=== PATIENT | male | born 1990 | race Caucasian/White ===

== ENCOUNTER → 2018-02-14 07:56 | Outpatient (CLI) | payer OTHER, SELFPAY ==
[2018-02-14 10:11] LABS: Hematocrit 40.8 % (40-54); Hemoglobin 14.2 g/dl (13.0-16.5); Mean Corp Hgb Conc 34.8 g/gl (32-36); Mean Corpuscular Hgb 31.7 pg (27.0-32.0); Mean Corpuscular Volume 91.1 fL (80-94); Mean Platelet Vol. 9.4 fl (6.2-12.0); Platelet Count 273 K/mm3 (150-450); RBC Distribution Width CV 12.1 % (11.6-14.6); RBC Distribution Width SD 40.6 fl (35.1-43.9); Red Blood Count 4.48 M/mm3 (4.6-6.2); White Blood Count 5.8 K/mm3 (4.4-11.0)
[2018-02-14 10:14] LABS: Scan Indicated on CBC? Y/N NO
[2018-02-14 10:37] LABS: Cholesterol 146 mg/dL (200); High Density Lipoprotein 66 mg/dL; T4 Total, Thyroxin 9.4 ug/dL (4.5-12.1); Thyroid Stim Hormone (TSH) 1.28 uIU/mL (0.358-3.74); Triglycerides 42 mg/dL; Very Low Density Lipoprotein 8 mg/dL (5-40)
== END ==
PROVIDERS: Family Provider Family Medicine; PCP Family Medicine; Visit Provider Family Medicine
DX: Z00.00 Encounter for general adult medical examination without abnormal findings (principal)
CPT/HCPCS: 36415; 80061; 84436; 84443; 85027

== ENCOUNTER → 2018-04-15 10:09 | Outpatient (CLI) | payer OTHER, SELFPAY ==
[2018-04-16 11:30] LABS: Hep B Surface Antibodies Reactive (.)
[2018-04-16 13:59] LABS: HIV - WCH Non-Reactive (Nonreactive)
[2018-04-18 03:58] LABS: Rapid Plasmin Reagin (RPR) NONREACTIVE (NONREACTIVE)
== END ==
PROVIDERS: Family Provider Family Medicine; PCP Family Medicine; Visit Provider Family Medicine
DX: Z11.3 Encounter for screening for infections with a predominantly sexual mode of transmission (principal)
CPT/HCPCS: 36415; 86592; 86703; 86706